=== PATIENT | male | born 1975 | race Caucasian/White ===

== ENCOUNTER 2019-07-15 09:38 | Emergency (ER) | payer BC ==
--- NOTE | 2019-07-15 11:26 | CR ---
Chest: 2 views of the chest were obtained. Comparison: No prior chest imaging. Heart size and mediastinum are within normal limits. Lungs are clear with no acute parenchymal change. Bony structures show scattered disc space narrowing within the spine with minimal scattered endplate osteophytes. Impression: 1. Nothing acute is appreciated on 2 view chest x-ray. Diagnostic code #2 Study was dictated in MDT
--- NOTE | 2019-07-15 12:50 | EDM.PDOC ---
ED HPI GENERAL MEDICAL PROBLEM - General Chief Complaint: Respiratory Problem Stated Complaint: COUGH/FEVER Time Seen by Provider: 07/15/19 11:32 Source of Information: Reports: Patient - History of Present Illness INITIAL COMMENTS - FREE TEXT/NARRATIVE: This 44 year old male is admitted to the ED with a chief complaint of cough and feeling tired for a few days and wanted to be checked out for possible COVID- 19. He has no other symptoms. He is eating well and doing fine. Onset: Gradual Improves with: Reports: None - Related Data Allergies Allergy/AdvReac Type Severity Reaction Status Date / Time No Known Allergies Allergy Verified 07/15/19 10:41 Home Meds: Home Meds Benzonatate 100 mg PO TID PRN 7 Days #21 capsule 07/15/19 [Rx] Past Medical History - Past Health History Medical/Surgical History: Denies Medical/Surgical History - Infectious Disease History Infectious Disease History: Reports: Chicken Pox Social & Family History - Family History Family Medical History: Noncontributory - Tobacco Use Smoking Status *Q: Light Tobacco Smoker Years of Tobacco use: 25 Packs/Tins Daily: 0 - Recreational Drug Use Recreational Drug Use: No ED ROS GENERAL - Review of Systems Review Of Systems: See Below Constitutional: Reports: Fatigue HEENT: Reports: No Symptoms Respiratory: Reports: Cough Cardiovascular: Reports: No Symptoms Endocrine: Reports: No Symptoms GI/Abdominal: Reports: No Symptoms : Reports: No Symptoms Musculoskeletal: Reports: No Symptoms Skin: Reports: No Symptoms Neurological: Reports: No Symptoms ED EXAM, GENERAL - Physical Exam Exam: See Below Exam Limited By: No Limitations General Appearance: Alert, WD/WN, No Apparent Distress Ears: Normal External Exam, Normal Canal, Hearing Grossly Normal, Normal TMs Ear Exam: Bilateral Ear: Auricle Normal, Canal Normal, TM normal Nose: Normal Inspection, Normal Mucosa, No Blood Throat/Mouth: Normal Inspection, Normal Lips, Normal Teeth, Normal Gums, Normal Oropharynx, Normal Voice, No Airway Compromise Head: Atraumatic, Normocephalic Neck: Normal Inspection, Supple, Non-Tender, Full Range of Motion Respiratory/Chest: No Respiratory Distress, Lungs Clear, Normal Breath Sounds, No Accessory Muscle Use, Chest Non-Tender Cardiovascular: Normal Peripheral Pulses, Regular Rate, Rhythm, No Edema, No Gallop, No JVD, No Murmur, No Rub GI/Abdominal: Normal Bowel Sounds (Male) Exam: Deferred Rectal (Males) Exam: Deferred Back Exam: Normal Inspection Extremities: Normal Inspection, Normal Range of Motion Neurological: Alert, Oriented, CN II-XII Intact, Normal Cognition, Normal Gait, Normal Reflexes, No Motor/Sensory Deficits Skin Exam: Warm, Dry, Intact, Normal Color, No Rash Lymphatic: No Adenopathy Course - Vital Signs Text/Narrative:: I reviewed all lab test as well as the negative chest x-ray. He will be discharged. He agrees with the discharge plan. Last Recorded V/S: Last Vital Signs Temp 97.9 F 07/15/19 10:38 Pulse 108 H 07/15/19 11:45 Resp 20 07/15/19 11:45 BP 142/80 H 07/15/19 11:45 Pulse Ox 96 07/15/19 11:45 - Orders/Labs/Meds Orders: Active Orders 24 hr Category Date Time Status CULTURE STREP A CONFIRMATION [] Stat Lab 07/15/19 10:37 Results STREP SCRN A RAPID W CULT CONF [RM] Stat Lab 07/15/19 10:37 Results Isolation [COMM] Routine Oth 07/15/19 10:09 Active Departure - Departure Time of Disposition: 12:47 Disposition: Home, Self-Care 01 Condition: Good Clinical Impression: Bronchitis - Discharge Information *PRESCRIPTION DRUG MONITORING PROGRAM REVIEWED*: Yes *COPY OF PRESCRIPTION DRUG MONITORING REPORT IN PATIENT SAM: Yes Prescriptions: Benzonatate 100 mg PO TID PRN 7 Days #21 capsule PRN Reason: Cough Instructions: Viral Illness, Adult Referrals: Manuel Carbajal [Ordering Only Provider] - PCP,None [Primary Care Provider] - Forms: ED Department Discharge Additional Instructions: Take all medications as directed. Follow up with your PCP in the next two to four days. Drink plenty of clear liquids for the next 24 hours. Rest for the next 24 hours. Return to the ED if your condition gets worse or should you have any questions or concerns. The following information is given to patients seen in the emergency department who are being discharged to home. This information is to outline your options for follow-up care. We provide all patients seen in our emergency department with a follow-up referral. The need for follow-up, as well as the timing and circumstances, are variable depending upon the specifics of your emergency department visit. If you don't have a primary care physician on staff, we will provide you with a referral. We always advise you to contact your personal physician following an emergency department visit to inform them of the circumstance of the visit and for follow-up with them and/or the need for any referrals to a consulting specialist. The emergency department will also refer you to a specialist when appropriate. This referral assures that you have the opportunity for follow-up care with a specialist. All of these measure are taken in an effort to provide you with optimal care, which includes your follow-up. Under all circumstances we always encourage you to contact your private physician who remains a resource for coordinating your care. When calling for follow-up care, please make the office aware that this follow-up is from your recent emergency room visit. If for any reason you are refused follow-up, please contact the [facility] Emergency Department at and asked to speak to the emergency department charge nurse. Sepsis Event Note - Evaluation Sepsis Screening Result: No Definite Risk - Focused Exam Vital Signs: Vital Signs Temp Pulse Resp BP Pulse Ox 07/15/19 11:45 108 H 20 142/80 H 96 07/15/19 10:38 97.9 F 112 H 16 131/85 94 L Date Exam was Performed: 07/15/19 Time Exam was Performed: 12:50
== END 2019-07-15 13:02 | disposition home or self-care (01) ==
LOC: MW.ED 09:38
DX: J40 Bronchitis, not specified as acute or chronic (principal); F17.210 Nicotine dependence, cigarettes, uncomplicated
CPT/HCPCS: 71046; 71046-26; 87081; 87804; 87880-QW; 99283-25